=== PATIENT | female | born 2000 | race Caucasian/White ===

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

== ENCOUNTER 2023-05-13 23:17 | Inpatient (IN) ==
[2023-05-13] MEDS ORDERED: AZITHROMYCIN 500 MG in DEXTROSE 5% 250 ML IV STA (23:43)
[2023-05-13] MEDS ORDERED: CITRIC ACID/SODIUM CITRATE 15 ML UDC PO ONE (23:45)
[2023-05-13] MEDS ORDERED: LACTATED RINGER'S 1,000 ML IV SCH (23:45)
[2023-05-13] MEDS ORDERED: SODIUM CHLORIDE 0.9% 250 ML IV PRN ×2 (23:49→23:57)
--- NOTE | 2023-05-13 23:54 | History & Physical Report ---
Date of Service May 13, 2023 Assessment & Plan (1) 36 weeks gestation of : Plan: Patient is a 23-year-old G3, P1 with a di/di twin intrauterine . Patient confirmed to be grossly ruptured on exam. Patient has a history of section x1. Reviewed option for trial of versus repeat as noted above. Risks of both options reviewed and patient would like to proceed with a repeat . She has opted to forego tubal ligation with plan for Nexplanon. consents reviewed and signed. Patient has received betamethasone earlier in this . Elevated blood pressures noted at present. We will continue to monitor. Preeclampsia labs ordered (2) Thrombocytopenia affecting : (3) Encounter for supervision of normal in multigravida, antepartum: (4) Gestational diabetes: (5) Previous delivery affecting , antepartum: (6) Dichorionic diamniotic twin : (7) Need for rhogam due to Rh negative mother: (8) premature rupture of membranes (PPROM) delivered, current hospitalization: History of Present Illness Primary Care Provider: RONEL Ackerman a 23-year-old G3, P1 currently at 36 weeks 3-day gestational age presents with spontaneous rupture of membranes. Current pressure is a di/di twin intrauterine with fetus is in cephalic cephalic presentation. also complicated by prior section, gestational diabetes and thrombocytopenia. Last platelet count was 95. Patient was considering a trial of labor after section. We discussed risks of trial of labor versus repeat section. We discussed uterine rupture and resulting maternal and harm and . After review of options and risks/benefits patient would like to proceed with a repeat section. She had previously discussed a tubal ligation which we reviewed again today. We discussed additional options for control as an alternative to a tubal ligation. After extensive discussion of options patient would like to proceed with placement of a Nexplanon postdelivery. DI/DI Twin *Baby ASA daily start 12-28wks until delivery *Anatomy scan @20wks *Serial growth US/S starting @24wks *Wkly NST's @32wks, twice wkly @36wks(nml growth) *Twice wkly NST's @32wks, ICSI or abnml growth *MD visits Q2wks @24wks & Qwk @32wks *DI/DI Deliver @38wks LGA twins normal range EFWs at 32wk Prior Section affecting would desire a if can and doctor thinks appropriate firs c/s for nrfht C/S WITH TUBAL ON 05/24/23 WITH HARDYK GDM in prior *Begin monthly Growth US's @24wks Need for Rhogam due to RH Negative Mother *Rhogam given 10/11/22 in ED- [facility] *Rhogam given 03/21/23- PW Hx Hepatitis C Antibody -neg antibody w/ nob labs Thrombocytopenia -CBC at 28 wks *platelets 104 repeat in 4 wks. +FFN 03/27/23 Steroids given at L&D 03/27/23 [address] [place] [address] Obstetrics Visit Signed Patient:RADHA NOEL Service Date:05/13/23 MR#:[id number] Ref Phy:Kim Brewer DO Acct ID:[id number] Ca Phy:Estephania Plasencia CRNP Date:2000 Location:[facility] cc: Kim Brewer DO~ *NOTICE TO RECEIVING LIBERTARIAN/AGENCY This information is strictly Confidential and protected under [place] law. [place] law prohibits you from making any further disclosure of this information unless further disclosure is expressly permitted by the written consent of the person to whom it pertains or is authorized by law. A general authorization for the release of medical or other information is not sufficient for this purpose. Physician Practice accepts no responsibility if the information is made available to any other person, INCLUDING THE PATIENT. OB Problems & Plan Follow Up Follow Up: 1 Week Medical [employer] Supervisor [employer] Supervisor Determination Visit Includes a Sensitive Exam of the Pt/Pt Requested: Yes Pt Informed of [facility]'s Recommendation for a Medical [employer]imney [employer] Supervisor: Yes Presence of a Medical Chimney [employer] Supervisor: Accepts Visit CARLA Calculator Estimated Delivery Date Method Current WG Current Estimate 06/07/23 Ultrasound #1 36w 3d # 2 LMP: 06/12/22 : 3 Full term: 1 Premature: 0 Total Number of Induced Abortions: 1 Total Number of Spontaneous Abortions: 0 Ectopics: 0 Multiple births: 0 Number of Living Children: 1 and Delivery Plans DI/DI Twin *Baby ASA daily start 12-28wks until delivery *Anatomy scan @20wks *Serial growth US/S starting @24wks *Wkly NST's @32wks, twice wkly @36wks(nml growth) *Twice wkly NST's @32wks, ICSI or abnml growth *MD visits Q2wks @24wks & Qwk @32wks *DI/DI Deliver @38wks LGA twins normal range EFWs at 32wk Prior Section affecting would desire a if can and doctor thinks appropriate firs c/s for nrfht C/S WITH TUBAL ON 05/24/23 WITH HARDYK GDM in prior *Begin monthly Growth US's @24wks Need for Rhogam due to RH Negative Mother *Rhogam given 10/11/22 in ED- [facility] *Rhogam given 03/21/23- PW Hx Hepatitis C Antibody -neg antibody w/ nob labs Thrombocytopenia -CBC at 28 wks *platelets 104 repeat in 4 wks. +FFN 03/27/23 Steroids given at L&D 03/27/23 OB Labs: Blood Type O Negative 10/22/22 Antibody Screen NEGATIVE 03/21/23 Hemoglobin 11.5 g/dl (12.0-16.0) L 04/25/23 Hematocrit 34.2 % (37.0-47.0) L 04/25/23 Mean Corpuscular Volume 90.7 fL (80.0-100.0) 04/25/23 Platelet Count 88 K/uL (130-400) L 04/25/23 Rubella IgG Antibody Immune (Immune) 10/22/22 Rapid Plasma Reagin Nonreactive (Nonreactive) 10/22/22 Hepatitis B Surface Antigen NEG (NEG) 07/23/17 Hepatitis B Surface Antigen. NON-REACTIVE (NON-REACTIVE) 10/22/22 Hepatitis C Antibody (EIA) NON-REACTIVE (NON-REACTIVE) 10/22/22 HIV (1&2) Ab and P24 Ag, 4th Gener NEG (NEG) 07/23/17 HIV (1&2) Ag and Ab Confirmation NON-REACTIVE (NON-REACTIVE) 10/22/22 OB Optional Labs: Chlamydia trachomatis RNA Not Detected (NotDetected) 10/22/22 Neisseria gonorrhoeae RNA Not Detected (NotDetected) 10/22/22 Alpha Fetoprotein Triple Screen SEE NOTE 09/09/17 Alpha Fetoprotein 26.4 NG/ML 09/09/17 Allergies Allergy/AdvReac Type Severity Reaction Status Date / Time codeine Allergy Intermediate throat Verified 05/13/23 14:03 swelling Home Medications Medication Instructions Recorded Confirmed Type vit no.95-ferrous 1 tab PO DAILY 10/11/22 05/13/23 History fumarate 28 mg-folic acid 800 mcg tablet () Ketone Urine Test (acetone (urine) #50 ea 01/28/23 05/13/23 Rx test) blood sugar diagnostic (OneTouch #150 ea 01/28/23 05/13/23 Rx Verio test strips) blood-glucose meter (OneTouch #1 ea 01/28/23 05/13/23 Rx Verio Reflect Meter) lancets 33 gauge (OneTouch Delica #150 ea 01/28/23 05/13/23 Rx Lancets) Patient History Medical History Anxiety Depression Varicella vaccination Surgical History S/P section Status post hip surgery Family History Other Ovarian cancer Denies family history of Breast cancer Colorectal cancer Social History (Updated 04/22/23 @ 14:52 by Deena Smith RN) Smoking Status: Current every day smoker Tobacco Type: Cigarettes Cigarettes Per Day: 2; Second Hand Exposure: No; Do You Dip or Chew Tobacco: No; Hx Alcohol Use: No Hx Substance Use: No Preferred Language: Thai Communication Ability: Effective Tobacco Prevention Health Educator Required: No Beliefs That Will Affect Care: None marital status: Single marital status details: mya Liu [phone] Current Living Situation: Significant Other Current Living Situation Comment: lives with mya and daughter, dogs. current occupational status: unemployed current occupation: clean houses Feels Safe at Home: Yes Diet: diabetic Gender Identity: Female Assistive Devices: None Physical Exam Genitourinary: normal external appearance Manual OB Exam: + amniotic fluid (Patient grossly ruptured) clear OB Exam Monitor Tracing: + external FHT mo nitor used, + external uterine monitor used and + category I Category 1 tracing x2 Results & Data Vital Signs (Past 12 Hours) Vital Signs Pulse BP 05/13/23 23:36 99 H 181/96 H Coding Level of Care Code None Diagnoses 36 weeks gestation of Z3A.36 Thrombocytopenia affecting O99.119; D69.6 Encounter for supervision of normal in multigravida, antepartum Z3 4.80 Gestational diabetes O24.419 Previous delivery affecting , antepartum O34.219 Dichorionic diamniotic twin O30.049 Need for rhogam due to Rh negative mother Z29.13 premature rupture of membranes (PPROM) delivered, current hospitalization O42.919
[2023-05-14] MEDS ORDERED: fentaNYL citrate PF 100 MCG/2 ML VIAL ONE (00:10)
[2023-05-14] MEDS ORDERED: MoRPHine SULFATE PF 1 MG/ML 10 ML AMP/VIAL ONE (00:11)
--- NOTE | 2023-05-14 00:17 | Anesthesiology Consultation ---
Date of Service May 14, 2023 History Surgery Operation Date: 05/13/23 23:50 Proposed Procedures p Section in LD - Ramon Llamas MD Height/Weight Height: 5 ft 5 in Weight: 105.687 kg Allergies Allergy/AdvReac Type Severity Reaction Status Date / Time codeine Allergy Intermediate throat Verified 05/13/23 14:03 swelling Medications Home Medications Medication Instructions Recorded Confirmed Last Taken vit no.95-ferrous 1 tab PO DAILY 10/11/22 05/13/23 05/12/23 19:00 fumarate 28 mg-folic acid 800 mcg tablet () Ketone Urine Test (acetone (urine) #50 ea 01/28/23 05/13/23 Unknown test) blood sugar diagnostic (OneTouch #150 ea 01/28/23 05/13/23 Unknown Verio test strips) blood-glucose meter (OneTouch #1 ea 01/28/23 05/13/23 Unknown Verio Reflect Meter) lancets 33 gauge (OneTouch Delica #150 ea 01/28/23 05/13/23 Unknown Lancets) Active Medications Generic Name Dose Route Start Last Admin Trade Name Freq PRN Reason Stop Dose Admin Azithromycin 500 mg/ Dextrose 255 mls @ 125 mls/hr 05/13/23 23:43 05/13/23 23:57 IV 05/14/23 01:45 125 mls/hr ONE STA Administration Past Medical History Medical History Anxiety Depression Varicella vaccination Past Family History Family History Other Ovarian cancer Denies family history of Breast cancer Colorectal cancer Past Surgical History Surgical History S/P section Status post hip surgery Social History Smoking Status: Light tobacco smoker tobacco type: cigarettes Smoking cigarettes per day: 2 Do You Dip or Chew Tobacco: No Hx Alcohol Use: No Hx Substance Use: No substance use type: does not use Physical Exam Vital Signs Last Vital Signs Temp 37.1 C 05/13/23 23:35 Pulse 93 H 05/13/23 23:45 Resp 18 05/13/23 23:35 BP 167/79 H 05/13/23 23:45 Constitutional WD/WN, vitals as above cooperative ENMT Thyromental Distance: > or= 3.5 Finger Breadths Mallampati Class: II Neck trachea midline, no thyromegaly Respiratory normal respiratory effort, lungs clear to auscultation Cardiovascular RRR, no murmur, no edema Heart Sounds: normal S1 and normal S2 Palpation: normal PMI Musculoskeletal Head/Neck/Chest: normocephalic and head atraumatic Spine: normal cervical ROM Neurologic normal touch/pain/proprioception, CN's II-XI intact bilaterally (Grossly intact) and moves all extremities Psychiatric A+Ox3, euthymic affect
[2023-05-14 00:19] LABS: Hematocrit (blood only) 32.1 % (37.0-47.0); Hemoglobin 11.1 g/dl (12.0-16.0); Mean Corpuscular Hemoglobin 30.7 pg (25.0-34.0); Mean Corpuscular Hgb Conc 34.6 g/dL (32.0-36.0); Mean Corpuscular Volume 88.9 fL (80.0-100.0); Mean Platelet Volume 12.7 fL (9.4-12.4); Platelet Count 95 K/uL (130-400); RDW Coefficient of Variation 15.5 % (11.5-14.5); RDW Standard Deviation 49.7 fL (36.4-46.3); Red Blood Count 3.61 M/uL (4.20-5.40); White Blood Count 9.09 K/ul (4.8-10.8)
[2023-05-14] MEDS ORDERED: OXYTOCIN 10 UNITS/ML VIAL ONE (00:29)
[2023-05-14 00:36] LABS: Albumin Globulin Ratio 1.1 (0.9-2); Albumin Level 2.8 gm/dl (3.4-5.0); BUN Creatinine Ratio 19.5 (10-20); Bilirubin,Total 0.4 mg/dl (0.2-1.0); Calcium 8.3 mg/dl (8.6-10.3); Creatinine Clr Calc Pharmacy 122.5 ml/min; Est GFR (African American) 109.6 ml/min; Est GFR (Non-African American) 94.6 ml/min; Globulin 2.5 gm/dl (2.5-4.0); Potassium 4.2 mmol/L (3.5-5.1); Total Protein 5.3 gm/dl (6.0-8.3)
[2023-05-14] MEDS ORDERED: ePHEDrine sulfate 50 MG/ML AMP IV PRN (00:54)
[2023-05-14] MEDS ORDERED: NALOXONE HCL 1 MG in SODIUM CHLORIDE 0.9% 1000ML 1,000 ML IV PRN ×2 (00:54→06:38)
[2023-05-14] MEDS ORDERED: MoRPHine SULFATE PF 1 MG/ML 10 ML AMP/VIAL INT SPINAL ONE ×2 (00:54→06:38)
[2023-05-14] MEDS ORDERED: diphenhydrAMINE 50 MG/ML VIAL IV PRN ×3 (00:54→18:54)
[2023-05-14] MEDS ORDERED: NALOXONE HCL 0.08 MG in SYRINGE 1.8 ML IV PRN ×2 (00:54→06:38)
[2023-05-14] MEDS ORDERED: LACTATED RINGER'S 500 ML IV PRN ×2 (00:54→06:38)
[2023-05-14] MEDS ORDERED: NALOXONE HCL 0.4 MG/1 ML VIAL/CARP IV PRN ×2 (00:54→06:38)
[2023-05-14] MEDS ORDERED: HYDROmorphone INJ 0.5 MG/0.5 ML SYR IV PRN (00:54)
[2023-05-14] MEDS ORDERED: DC INTRASPINAL MORPHINE SCH ×2 (01:00→06:45)
[2023-05-14] MEDS ORDERED: SODIUM CHLORIDE 0.9% 1000ML 1,000 ML IV SCH ×2 (01:00→06:45)
[2023-05-14] MEDS ORDERED: NO NARCOTICS OR SEDATIVES SCH ×2 (01:00→06:45)
[2023-05-14] MEDS ORDERED: METHYLENE BLUE 0.5% 10 ML VIAL ONE (01:09)
[2023-05-14] MEDS ORDERED: ONDANSETRON INJ 2 MG/ML 2 ML VIAL ONE (01:26)
[2023-05-14] MEDS ORDERED: HYDROCORTISONE ACETATE 25 MG SUPP PR PRN (01:49)
[2023-05-14] MEDS ORDERED: DIPHTHERIA/TETANUS/PERTUSSIS Vaccine (Tdap, Age 7+yrs) 0.5mL SYR/VL IM ONE (01:49)
[2023-05-14] MEDS ORDERED: BENZOCAINE 20% SPRY 85 APPLN/85 GM CAN EXT PRN (01:49)
[2023-05-14] MEDS ORDERED: MAGNESIUM HYDROXIDE SUSP 30 ML UDC PO PRN (01:49)
[2023-05-14] MEDS ORDERED: SENNA 8.6 MG TAB PO PRN (01:49)
--- NOTE | 2023-05-14 01:58 | Post Operative Brief Note ---
[facility] Immediate Post Op with CF Date of Surgery May 14, 2023 Pre & Post Diagnosis Operation Date: 05/13/23 23:50 Pre-Op Diagnosis: 1. Di/Di twin 2. 36 weeks gestation with rupture of membranes 3. Gestational diabetes Post-Op Diagnosis: 1. Same 2. Delivery of live female child 0101 3. Delivery of live male child 0101 I identified the patient and participated in the time-out.: Yes Procedure Operation Date: 05/13/23 23:50 Actual Procedures p twin Section in LD - Ramon Llamas MD Surgeon Ramon Llamas MD Certified Personal Chef Dr. Brewer Estimated Blood Loss 700 Findings Consistent with Post-Op Diagnosis Specimens Specimen Description: 1. Placenta "A"-hold 2. Placenta "B"-hold 3. Cord blood "A" 4. Cord blood "B" Drains Sellers Catheter OB Procedure charges OB Charges 70755
[2023-05-14] MEDS ORDERED: NALBUPHINE HCL 5 MG in SYRINGE 0 ML IV STA (02:00)
--- NOTE | 2023-05-14 02:00 | Operative Report ---
[facility] Post Operative Report Pre & Post Diagnosis Operation Date: 05/13/23 23:50 Pre-Op Diagnosis: 1. Di/Di twin 2. 36 weeks gestation with rupture of membranes 3. Gestational diabetes Post-Op Diagnosis: 1. Same 2. Delivery of live female child 0101 3. Delivery of live male child 0101 I identified the patient and participated in the time-out.: Yes Procedure Operation Date: 05/13/23 23:50 Actual Procedures p Section in LD - Ramon Llamas MD Surgeon Ramon Llamas MD Biopharmaceutical Rep Dr. Brewer Estimated Blood Loss 700 Findings Consistent with Post-Op Diagnosis Specimens None Description of Procedure The patient was taken to the operating room after consents were ensured. Upon presentation, she was properly identified. Spinal anesthesia was obtained without difficulty. The patient was then prepped and draped in normal sterile fashion. Preprocedural timeout was performed. A Pfannenstiel incision was then made with a knife at the prior location. This was carried down to underlying fascia with the Bovie. The fascia was nicked at the midline with a knife and extended laterally with pickups and Abad scissors. The superior aspect of the fascia was grasped with Kochers x2, elevated off the underlying rectus muscles with blunt dissection and Abad scissors. Inferior aspect of the fascia was grasped with Kochers x2, elevated off the underlying rectus muscles using blunt dissection. The midline was then entered bluntly, placed on stretch to provide adequate room for delivery. There was noted to be adhesions of the anterior abdominal wall to the uterus which were reduced. A bladder flap was created and the bladder blade was inserted. A low transverse uterine incision was then made with a knife. The uterine cavity and amniotic cavity entered bluntly, placed on stretch to provide adequate room for delivery. Head of baby A delivered through the hysterotomy without difficulty, body and shoulders quickly followed. Cord was then double clamped and cut. taken to the waiting nursery staff. Baby B was noted to be in cephalic position and the amniotic sac ruptured with Allis clamp. Thin meconium noted. Head of the delivered through the hysterotomy without difficulty. Body and shoulders quickly followed and was noted to be vigorous soon after delivery. Cord was double clamped and cut and taken of the awaiting nursery staff for evaluation. Cord blood was obtained x2. Attention was then turned to delivery of the placenta, which was delivered intact, 3- vessel cord, with gentle cord traction and uterine massage. The uterus was then exteriorized, wrapped in a wet lap and several passes were made, removing any remaining membranes with a dry lap. The hysterotomy was then reapproximated with 0 Vicryl continuous running locked stitch. A second imbricating layer was performed. The hysterotomy was then reinspected and noted to have mild bleeding, which was then cauterized and pressure was applied and hemostasis was noted. The uterus was then returned to the maternal abdomen. The hemostasis was then noted. The muscles, subcutaneous and fascial layers were inspected to be hemostatic. Stormy was applied to the hysterotomy and raw edges of the bladder flap. The fascia was reapproximated with 0 Vicryl in continuous running stitch.. The subcutaneous layers were reapproximated with 2-0 plain and continuous running stitch. The skin was reapproximated with 3-0 Vicryl with a subcuticular stitch. Needle, sponge, and instrument counts were correct at the completion of the case. Both mother and stable in the immediate post-delivery period I attest to the content of the Intraoperative Record and any orders documented therein. Any exceptions are noted below. OB Procedure charges OB Charges [id number]
--- NOTE | 2023-05-14 02:11 | Anesthesiology Progress Note ---
Date of Service May 14, 2023 Anesthesia Post Procedure Vital Signs Vital Signs: Temp Pulse Resp BP Pulse Ox 05/14/23 02:07 78 99 05/14/23 02:02 80 99 05/14/23 02:01 86 137/85 05/13/23 23:45 93 H 167/79 H 05/13/23 23:36 99 H 181/96 H 05/13/23 23:35 37.1 C 18 Notes Mental Status: alert / awake / arousable Patient Amnestic to Procedure: Yes Nausea / Vomiting: adequately controlled Pain: adequately controlled Airway Patency, RR, SpO2: stable & adequate BP & HR: stable & adequate Hydration State: stable & adequate Neuraxial Anesthesia: was administered and sensory block is resolving Anesthetic Complications: no major complications apparent
[2023-05-14] MEDS ORDERED: NALBUPHINE HCL INJ 10 MG/ML AMP IV ONE (02:15)
[2023-05-14] MEDS: OXYTOCIN 20 UNITS in LACTATED RINGER'S 1,000 ML IV SCH ×2 (02:20→10:35)
[2023-05-14] MEDS: NALBUPHINE HCL INJ 10 MG/ML AMP IV PRN ×2 (02:23→17:53)
[2023-05-14] MEDS ORDERED: NALBUPHINE HCL INJ 10 MG/ML AMP IV PRN (06:38)
--- NOTE | 2023-05-14 07:10 | Obstetrical Progress Note ---
Date of Service May 14, 2023 Assessment & Plan (1) S/P section: (2) premature rupture of membranes (PPROM) delivered, current hospitalization: (3) 36 weeks gestation of : (4) Dichorionic diamniotic twin : (5) Tobacco smoking affecting : Admission and Anticipated Discharge Date Admission Date: May 13, 2023 Subjective 23 yo s/p with di-di twins. PPROM at 36w3d. Ambulation: ambulating normally Voiding: day in place, no bowel movement Passing Gas:: Pt unsure Diet Tolerance:: regular diet Lochia:: Small Feeding Type:: breast feeding, baby girl latching, baby boy not so far Current Pain Level(1-10): 5/10 Resting in moderate discomfort, NAD No BRIDGES, CP, SOB, N/V/D, leg swelling/edema improved Review of Systems Review of Systems: reviewed, see hpi Physical Exam Physical Exam: General: patient resting comfortably, NAD, non-toxic in appearance, AA&O x 4, answers questions appropriately Skin: warm, dry, intact HEENT: NC/AT, anicteric sclera, conjunctiva without injection, moist mucus membranes Heart: +S1/S2, regular, no m/r/g Lungs: equal air entry bilaterally, no rales/rhonchi/wheezes Abd: +BS, soft, NT/ND, uterine fundus firm at umbilicus, incision C/D/I : day in place draining clear/dark urine Ext: warm, no clubbing/cyanosis or edema, Terrie's neg Neuro: nonfocal, patient AA&O x 4, speech intact, no facial droop, moving all extremities on command. Results & Data Vital Signs (Past 12 Hours) Vital Signs Temp Pulse Resp BP Pulse Ox 05/14/23 05:56 18 05/14/23 05:00 18 05/14/23 04:00 18 05/14/23 03:30 18 05/14/23 03:00 18 05/14/23 00:50 18 05/14/23 02:40 18 05/14/23 02:30 18 05/14/23 02:20 18 05/14/23 02:10 18 05/14/23 02:00 36.6 C 18 05/14/23 06:04 69 05/14/23 06:04 137/71 05/14/23 06:01 95 05/14/23 06:01 70 05/14/23 05:56 95 05/14/23 05:56 74 05/14/23 05:51 96 05/14/23 05:51 73 05/14/23 05:48 93 05/14/23 05:48 74 05/14/23 05:46 95 05/14/23 05:46 71 05/14/23 05:41 95 05/14/23 05:41 78 05/14/23 05:36 95 05/14/23 05:36 79 05/14/23 05:34 75 146/73 H 05/14/23 05:31 83 95 05/14/23 05:32 78 94 05/14/23 05:26 82 93 05/14/23 05:27 80 94 05/14/23 05:22 85 93 05/14/23 05:21 90 95 05/14/23 05:16 89 95 05/14/23 05:11 86 97 05/14/23 05:12 86 93 05/14/23 05:06 80 95 05/14/23 05:03 79 93 05/14/23 05:04 76 136/73 05/14/23 05:01 85 96 05/14/23 04:58 84 94 05/14/23 04:56 81 95 05/14/23 04:51 86 97 05/14/23 04:46 81 96 05/14/23 04:41 82 96 05/14/23 04:36 80 95 05/14/23 04:34 72 132/67 94 05/14/23 04:31 77 96 05/14/23 04:26 78 97 05/14/23 04:17 88 94 05/14/23 04:12 91 H 98 05/14/23 04:07 82 98 08 04:04 90 132/72 05/14/23 04:02 82 96 05/14/23 03:57 76 95 05/14/23 03:52 75 97 05/14/23 03:47 73 96 05/14/23 03:42 74 97 05/14/23 03:37 70 97 05/14/23 03:34 85 122/99 05/14/23 03:32 92 H 98 05/14/23 03:27 87 97 05/14/23 03:22 84 97 05/14/23 03:17 81 99 05/14/23 03:12 83 99 05/14/23 03:07 83 99 05/14/23 03:02 99 05/14/23 03:02 73 05/14/23 03:02 78 130/65 05/14/23 02:57 79 100 05/14/23 02:58 88 93 05/14/23 02:52 93 H 96 05/14/23 02:51 74 159/72 H 05/14/23 02:47 87 97 05/14/23 02:42 100 05/14/23 02:42 82 05/14/23 02:42 113 H 144/65 H 05/14/23 02:37 82 97 05/14/23 02:32 77 100 05/14/23 02:31 65 126/82 05/14/23 02:27 82 99 05/14/23 02:22 79 100 05/14/23 02:23 74 142/65 H 05/14/23 02:17 84 100 05/14/23 02:14 95 H 144/72 H 05/14/23 02:12 85 100 05/14/23 02:13 123 H 176/124 H 05/14/23 02:07 78 99 05/14/23 02:02 80 99 05/14/23 02:01 86 137/85 05/13/23 23:45 93 H 167/79 H 05/13/23 23:36 99 H 181/96 H 05/13/23 23:35 37.1 C 18 Laboratory Results 05/14/23 05/13/23 05/13/23 Range/Units 00:02 23:52 23:52 WBC 9.09 (4.8-10.8) K/ul RBC 3.61 L (4.20-5.40) M/uL Hgb 11.1 L (12.0-16.0) g/dl Hct 32.1 L (37.0-47.0) % MCV 88.9 (80.0-100.0) fL MCH 30.7 (25.0-34.0) pg MCHC 34.6 (32.0-36.0) g/dL RDW Std Deviation 49.7 H (36.4-46.3) fL RDW Coeff of Shilo 15.5 H (11.5-14.5) % Plt Count 95 L (130-400) K/uL MPV 12.7 H (9.4-12.4) fL Sodium 135 L (136-145) mmol/L Potassium 4.2 (3.5-5.1) mmol/L Chloride 109 H (98-107) mmol/L Carbon Dioxide 18 L (21-32) mmol/L Anion Gap 8 (3-11) BUN 17 (6-23) mg/dl Creatinine 0.87 (0.6-1.2) mg/dl Est Cr Clr Drug Dosing 122.5 ml/min Est GFR ( Amer) 109.6 ml/min Est GFR (Non-Af Amer) 94.6 ml/min BUN/Creatinine Ratio 19.5 (10-20) Glucose 84 (70-99(Fasting)) mg/dl Calcium 8.3 L (8.6-10.3) mg/dl Total Bilirubin 0.4 (0.2-1.0) mg/dl AST 13 (13-39) U/L ALT 5 L (7-52) U/L Alkaline Phosphatase 193 H (34-104) U/L Total Protein 5.3 L (6.0-8.3) gm/dl Albumin 2.8 L (3.4-5.0) gm/dl Globulin 2.5 (2.5-4.0) gm/dl Albumin/Globulin Ratio 1.1 (0.9-2) Blood Type O Negative Antibody Screen NEGATIVE Crossmatch See Detail Resident Activity Tracking Resident Involvement: Resident Care Provided Care Provided: Adult Hospital Medicine
[2023-05-14] MEDS: FERROUS SULFATE 325 MG TAB PO SCH (08:13)
[2023-05-14] MEDS: SIMETHICONE 80 MG CHEW PO SCH ×4 (08:13→20:57)
[2023-05-14] MEDS: DOCUSATE SODIUM 100 MG CAP PO SCH ×2 (08:13→20:57)
[2023-05-14] MEDS: KETOROLAC TROMETHAMINE 15 MG/ML VIAL IV PRN ×2 (08:14→13:42)
[2023-05-14] MEDS: PRENATAL VITAMIN 1 TAB PO SCH (09:21)
[2023-05-14] MEDS: cephALEXin 500 MG CAP PO SCH ×2 (09:31→20:57)
[2023-05-14 13:13] LABS: Hemoglobin 8.8 g/dl (12.0-16.0); Mean Corpuscular Hemoglobin 30.6 pg (25.0-34.0); Mean Corpuscular Hgb Conc 33.8 g/dL (32.0-36.0); Mean Corpuscular Volume 90.3 fL (80.0-100.0); Mean Platelet Volume 11.7 fL (9.4-12.4); Platelet Count 71 K/uL (130-400); RDW Coefficient of Variation 15.5 % (11.5-14.5); RDW Standard Deviation 50.8 fL (36.4-46.3); Red Blood Count 2.88 M/uL (4.20-5.40); White Blood Count 6.03 K/ul (4.8-10.8)
[2023-05-14 13:41] LABS: Albumin Globulin Ratio 1.1 (0.9-2); Albumin Level 2.2 gm/dl (3.4-5.0); Bilirubin,Total 0.3 mg/dl (0.2-1.0); Calcium 7.8 mg/dl (8.6-10.3); Creatinine Clr Calc Pharmacy 134.9 ml/min; Est GFR (African American) 123.2 ml/min; Est GFR (Non-African American) 106.3 ml/min; Potassium 4.3 mmol/L (3.5-5.1); Total Protein 4.2 gm/dl (6.0-8.3)
[2023-05-14] MEDS ORDERED: LACTATED RINGER'S 1,000 ML IV SCH (18:15)
[2023-05-14] MEDS ORDERED: diphenhydrAMINE Capsule 25 MG CAP PO PRN (18:54)
[2023-05-14] MEDS ORDERED: ONDANSETRON INJ 2 MG/ML 2 ML VIAL IV PRN (18:54)
[2023-05-14] MEDS ORDERED: PROMETHAZINE HCL 25 MG in SODIUM CHLORIDE 0.9% 50 ML IV PRN (18:54)
[2023-05-14] MEDS ORDERED: KETOROLAC 30 MG/ML VIAL IV PRN (18:54)
[2023-05-14] MEDS: IBUPROFEN 600 MG TAB PO PRN ×2 (19:12→23:40)
[2023-05-14] MEDS: oxyCODONE/ACETAMINOPHEN 5mg/325mg TAB PO PRN ×2 (19:13→23:39)
[2023-05-14] MEDS ORDERED: hydrOXYzine HCl 25 MG TAB PO PRN (22:01)
--- NOTE | 2023-05-15 05:29 | Obstetrical Progress Note ---
Date of Service May 15, 2023 Assessment & Plan (1) S/P section: Plan: encourage ambulation (2) Cough: Plan: robutussin covid/rsv/flu swab cxr Present on Admission?: Yes (3) premature rupture of membranes (PPROM) delivered, current hospitalization: (4) 36 weeks gestation of : (5) Dichorionic diamniotic twin : (6) Tobacco smoking affecting : Plan 23 yo post day 1 s/p , delivery of di-di twins Admission and Anticipated Discharge Date Admission Date: May 13, 2023 Supervising Physician Co-Signing Physician Notes Resident Physician Supervision Note: I was present with Dr. Singh during the history and exam. I discussed the case with the resident and agree with the findings and plan as documented in the note. Any exceptions or clarifications are listed here: POD#1. New-onset cough, clear lung sounds. Will do CXR, covid/flu/rsv swab. Robitussin. Repeat labs this morning show stable platelets. Encouraged ambulation, hydration. Restarted her zoloft, hydroxyzine - she is aware to follow up with PCP selina for management. Documented By: Kim Brewer, Subjective 23 yo post day 1 s/p , delivery of di-di twins Ambulation: ambulating normally Voiding: no voiding problems Passing Gas:: Yes Diet Tolerance:: regular diet, not eating much Lochia:: Small Feeding Type:: bottle feeding Current Pain Level(1-10): 3 down from 5 yesterday Continues to have incisional pain worse with movement and cough. Breast feeding. Persistent cough present since prior to delivery. B/l leg swelling with some pain No BRIDGES, CP, SOB, N/V/D Review of Systems Review of Systems: reviewed, per hpi Physical Exam Physical Exam: General: patient resting comfortably, NAD, non-toxic in appearance, AA&O x 4, answers questions appropriately Skin: warm, dry, intact HEENT: NC/AT, anicteric sclera, conjunctiva without injection, moist mucus membranes Heart: +S1/S2, regular, no m/r/g Lungs: equal air entry bilaterally, cough, diffuse crackles worse in upper lung burdick Abd: +BS, soft, NT/ND, uterine fundus firm at umbilicus, cesarian incision C/D/I Ext: warm, no clubbing/cyanosis or edema, Terrie's neg Neuro: nonfocal, patient AA&O x 4, speech intact, no facial droop, moving all extremities on command. Results & Data Vital Signs (Past 12 Hours) Vital Signs Temp Pulse Resp BP BP Pulse Ox O2 Del Method 05/15/23 04:24 47 L 145/84 H 142/82 H 05/14/23 23:40 Room Air 05/14/23 23:40 36.5 C 80 18 133/79 166/87 H Room Air 05/14/23 18:50 20 94 05/14/23 17:50 20 94 05/14/23 21:45 146/88 H 147/90 H 05/14/23 19:20 36.9 C 70 20 138/81 162/93 H 94 Room Air 05/14/23 17:50 137/86 157/92 H Laboratory Results 05/14/23 05/14/23 Range/Units 12:41 12:41 WBC 6.03 (4.8-10.8) K/ul RBC 2.88 L (4.20-5.40) M/uL Hgb 8.8 L (12.0-16.0) g/dl Hct 26.0 L (37.0-47.0) % MCV 90.3 (80.0-100.0) fL MCH 30.6 (25.0-34.0) pg MCHC 33.8 (32.0-36.0) g/dL RDW Std Deviation 50.8 H (36.4-46.3) fL RDW Coeff of Shilo 15.5 H (11.5-14.5) % Plt Count 71 L (130-400) K/uL MPV 11.7 (9.4-12.4) fL Sodium 136 (136-145) mmol/L Potassium 4.3 (3.5-5.1) mmol/L Chloride 110 H (98-107) mmol/L Carbon Dioxide 22 (21-32) mmol/L Anion Gap 4 (3-11) BUN 15 (6-23) mg/dl Creatinine 0.79 (0.6-1.2) mg/dl Est Cr Clr Drug Dosing 134.9 ml/min Est GFR ( Amer) 123.2 ml/min Est GFR (Non-Af Amer) 106.3 ml/min BUN/Creatinine Ratio 19.0 (10-20) Glucose 72 (70-99(Fasting)) mg/dl Calcium 7.8 L (8.6-10.3) mg/dl Total Bilirubin 0.3 (0.2-1.0) mg/dl AST 16 (13-39) U/L ALT 4 L (7-52) U/L Alkaline Phosphatase 135 H (34-104) U/L Total Protein 4.2 L D (6.0-8.3) gm/dl Albumin 2.2 L (3.4-5.0) gm/dl Globulin 2.0 L (2.5-4.0) gm/dl Albumin/Globulin Ratio 1.1 (0.9-2) Resident Activity Tracking Resident Involvement: Resident Care Provided Care Provided: Adult [facility]
[2023-05-15] MEDS: IBUPROFEN 600 MG TAB PO PRN ×4 (06:27→20:06)
[2023-05-15] MEDS: oxyCODONE/ACETAMINOPHEN 5mg/325mg TAB PO PRN ×4 (06:27→20:06)
[2023-05-15 06:29] LABS: Basophils # (auto) 0.01 K/uL (0-0.2); Basophils % (auto) 0.2 %; Eosinophils # (auto) 0.02 K/uL (0-0.50); Eosinophils % (auto) 0.3 %; Hematocrit (blood only) 25.8 % (37.0-47.0); Hemoglobin 8.8 g/dl (12.0-16.0); Immature Granulocytes # (auto) 0.07 K/uL (0.01-0.20); Immature Granulocytes % (auto) 1.1 %; Lymphocytes # (auto) 1.17 K/uL (1.2-3.4); Lymphocytes % (auto) 18.3 %; Mean Corpuscular Hemoglobin 30.9 pg (25.0-34.0); Mean Corpuscular Hgb Conc 34.1 g/dL (32.0-36.0); Mean Corpuscular Volume 90.5 fL (80.0-100.0); Monocytes # (auto) 0.29 K/uL (0.11-0.59); Monocytes % (auto) 4.5 %; Neutrophils # (auto) 4.83 K/uL (1.40-6.50); Neutrophils % (auto) 75.6 %; Platelet Count 70 K/uL (130-400); RDW Coefficient of Variation 15.7 % (11.5-14.5); RDW Standard Deviation 51.6 fL (36.4-46.3); Red Blood Count 2.85 M/uL (4.20-5.40); White Blood Count 6.39 K/ul (4.8-10.8)
[2023-05-15] MEDS ORDERED: guaiFENesin/DEXTROM SYRUP 200MG/20MG 10ML UDC PO PRN (06:54)
[2023-05-15 07:02] LABS: Albumin Level 2.2 gm/dl (3.4-5.0); BUN Creatinine Ratio 18.2 (10-20); Bilirubin,Total 0.3 mg/dl (0.2-1.0); Calcium 7.7 mg/dl (8.6-10.3); Creatinine Clr Calc Pharmacy 138.4 ml/min; Est GFR (Non-African American) 109.6 ml/min; Globulin 2.1 gm/dl (2.5-4.0); Potassium 4.3 mmol/L (3.5-5.1); Total Protein 4.3 gm/dl (6.0-8.3)
--- NOTE | 2023-05-15 07:11 | XRay Report ---
XR chest 1V portable HISTORY: 23 years-old Female cough acute cough COMPARISON: Chest and rib radiographs 10/31/2010 TECHNIQUE: AP view of the chest FINDINGS: Cardiomediastinal and hilar silhouettes are within normal limits. No pneumothorax, pleural effusion, airspace consolidation or pulmonary edema. Bones appear normal. IMPRESSION: No acute process. ACT 112: Negative or not required by law. The above report was generated using voice recognition software. It may contain grammatical, syntax o r spelling errors. Electronically signed by: Ramon Lloyd M.D. 05/15/2023 7:10 AM
[2023-05-15 09:02] LABS: Influenza A virus by PCR Negative (Neg); Influenza B virus by PCR Negative (Neg); RSV by PCR Negative (Neg); SARS CoV2 RNA(COVID-19) Ceph NEGATIVE (Negative)
[2023-05-15] MEDS: SIMETHICONE 80 MG CHEW PO SCH ×4 (09:02→20:06)
[2023-05-15] MEDS: FERROUS SULFATE 325 MG TAB PO SCH (09:03)
[2023-05-15] MEDS: DOCUSATE SODIUM 100 MG CAP PO SCH ×2 (09:03→20:05)
[2023-05-15] MEDS: PRENATAL VITAMIN 1 TAB PO SCH (09:03)
[2023-05-15] MEDS: SERTRALINE HCL 50 MG TABLET PO SCH (09:04)
[2023-05-15] MEDS: cephALEXin 500 MG CAP PO SCH (09:04)
[2023-05-15 18:18] LABS: Hematocrit (blood only) 26.1 % (37.0-47.0); Hemoglobin 8.9 g/dl (12.0-16.0); Mean Corpuscular Hemoglobin 30.3 pg (25.0-34.0); Mean Corpuscular Hgb Conc 34.1 g/dL (32.0-36.0); Mean Corpuscular Volume 88.8 fL (80.0-100.0); Mean Platelet Volume 11.6 fL (9.4-12.4); Platelet Count 89 K/uL (130-400); RDW Coefficient of Variation 15.7 % (11.5-14.5); RDW Standard Deviation 49.4 fL (36.4-46.3); Red Blood Count 2.94 M/uL (4.20-5.40); White Blood Count 7.96 K/ul (4.8-10.8)
[2023-05-15 18:38] LABS: Albumin Globulin Ratio 1.1 (0.9-2); Albumin Level 2.5 gm/dl (3.4-5.0); BUN Creatinine Ratio 19.8 (10-20); Bilirubin,Total 0.3 mg/dl (0.2-1.0); Calcium 7.9 mg/dl (8.6-10.3); Creatinine Clr Calc Pharmacy 131.5 ml/min; Est GFR (African American) 119.5 ml/min; Est GFR (Non-African American) 103.1 ml/min; Globulin 2.3 gm/dl (2.5-4.0); Potassium 4.1 mmol/L (3.5-5.1); Total Protein 4.8 gm/dl (6.0-8.3)
--- NOTE | 2023-05-15 19:57 | Obstetrical Progress Note ---
Date of Service May 15, 2023 Assessment & Plan (1) S/P section: (2) Thrombocytopenia affecting : (3) Elevated blood pressure reading: Plan Pressures are mildly elevated wtih most in the 140-150s/80s. A rare severe range blood pressure but always goes down on repeat. Labs are wnl and plts are recovering. No s/s of pet. Do not suspect HELLP or severe pet at this time. May have a mild pet picture. Do not think Mag is indicated at this time. However, will treat blood pressure with procardia XL as pulse a bit low. She is agreeable to this. Will notify nursing of any changes in her condition. Subjective Was notified by nurse of elevated blood pressure at 5pm of 155/91. Was not notified of blood pressure of 170/92 with repeat of 160/90s at noon. Patient has been more active today but still has not been out of the room to walk. She is smiling and talking to the nurse when I came in, lying in bed. She notes she feels ok. Notes some blurry vision in the last couple of hours, no scomotata. Notes a very mild nguyen and mild nausea through the day. Notes she feels her swelling might be a little bit worse today. Notes no ruq pain/chest pain or sob. patient continues to note some uri symptoms. Covid test negative. cxr clear. Her labs were drawn and all are wnl. 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 Blood pressures are not severe range, mild range. Pulse in 50s at times but asymptomatic. Physical Exam Constitutional WD/WN, vitals as above Cardiovascular Extremities: + edema (+4, tight, some pitting to above the knee); no calf tenderness Gastrointestinal (Abdomen) soft, nt, fundus appropriately tender post op. Notes a bit of tenderness in the RUQ Neurologic patellar DTR's 2+ bilat, sensation intact Results & Data Vital Signs (Past 12 Hours) Vital Signs Temp Pulse Pulse Resp BP BP BP 05/15/23 17:10 36.8 C 52 L 16 155/91 H 05/15/23 12:55 36.8 C 60 20 162/97 H 170/92 H 05/15/23 08:35 36.8 C 56 L 20 124/82 146/84 H 05/15/23 08:53 36.8 C 56 L 20 124/82 Pulse Ox O2 Del Method 05/15/23 17:10 05/15/23 12:55 05/15/23 08:35 98 Room Air 05/15/23 08:53 98
[2023-05-15] MEDS ORDERED: bisacodyL 5 MG TABEC PO SCH (20:00)
[2023-05-15] MEDS: NIFEdipine EXTENDED REL 30 MG TABCR PO SCH (20:17)
[2023-05-16] MEDS ORDERED: bisacodyL 10 MG SUPP PR PRN (01:50)
[2023-05-16] MEDS: IBUPROFEN 600 MG TAB PO PRN ×5 (01:53→21:08)
[2023-05-16] MEDS: oxyCODONE/ACETAMINOPHEN 5mg/325mg TAB PO PRN ×5 (01:53→21:08)
[2023-05-16 04:07] VITALS: O2SAT 99
--- NOTE | 2023-05-16 06:26 | Obstetrical Progress Note ---
Date of Service May 16, 2023 Assessment & Plan (1) S/P section: Plan: encourage ambulation (2) Cough: Plan: robutussin covid/rsv/flu swab negative cxr negative (3) Elevated blood pressure reading with diagnosis of hypertension: Plan: improved procardia 30 mg plan to stay another day for BP monitoring Plan 23 yo post day 1 s/p , delivery of di-di twins encourage ambulation restarted zoloft, hydroxyzine BPs stable after addition of procardia xl Admission and Anticipated Discharge Date Admission Date: May 13, 2023 Supervising Physician Co-Signing Physician Notes Resident Physician Supervision Note: I interviewed and examined the patient. Discussed with Dr. Singh and agree with findings and plan as documented in the note. Any exceptions or clarifications are listed here: Overall doing better. Her plts continue to rebound and now >100K, labs this am are all wnl. Feeling overall better. Notes nausea resolved and her mild bridges is gone. She feels her swelling is a little better today. +4, but softer and above the knee. No s/s of pet. Her pressures seem to be r esponding to Procardia XL. Will need to monitor though the day today for her pressues. has not really been ambulatory, encouraged. Documented By: Nancy Valentin MD, FACOG Subjective 23 yo post day 3 s/p , delivery of di-di twins Ambulation: ambulating much better today Voiding: voiding and passing gas, no bowel movements Passing Gas:: Yes Diet Tolerance:: regular diet, diet improving Lochia:: Small Feeding Type:: bottle feeding Current Pain Level(1-10): minimal Continues to have incisional pain worse with movement and cough. Bottle feeding Persistent cough present since prior to delivery. B/l leg swelling same to slightly better today No BRIDGES, CP, SOB, N/V/D Review of Systems Review of Systems: reviewed, per hpi Physical Exam Physical Exam: General: patient resting comfortably, NAD, non-toxic in appearance, AA&O x 4, answers questions appropriately Skin: warm, dry, intact HEENT: NC/AT, anicteric sclera, conjunctiva without injection, moist mucus membranes Heart: +S1/S2, regular, no m/r/g Lungs: equal air entry bilaterally, decreased cough Abd: +BS, soft, NT/ND, uterine fundus firm, cesarian incision C/D/I Ext: warm, edema 3-4+, Terrie's neg, some redness in feet today Neuro: nonfocal, patient AA&O x 4, speech intact, no facial droop, moving all extremities on command. Results & Data Vital Signs (Past 12 Hours) Vital Signs Temp Pulse Resp BP BP Pulse Ox O2 Del Method 05/16/23 04:05 36.4 C L 60 16 134/77 99 Room Air 05/16/23 00:11 36.8 C 54 L 18 138/84 98 Room Air 05/15/23 19:40 36.9 C 61 16 146/88 H 97 Room Air Resident Activity Tracking Resident Involvement: Resident Care Provided Care Provided: Adult Hospital Medicine
[2023-05-16 06:47] LABS: Hematocrit (blood only) 27.9 % (37.0-47.0); Hemoglobin 9.5 g/dl (12.0-16.0); Mean Corpuscular Hemoglobin 30.4 pg (25.0-34.0); Mean Corpuscular Hgb Conc 34.1 g/dL (32.0-36.0); Mean Corpuscular Volume 89.4 fL (80.0-100.0); Mean Platelet Volume 11.4 fL (9.4-12.4); Platelet Count 105 K/uL (130-400); RDW Coefficient of Variation 15.8 % (11.5-14.5); RDW Standard Deviation 50.6 fL (36.4-46.3); Red Blood Count 3.12 M/uL (4.20-5.40); White Blood Count 6.54 K/ul (4.8-10.8)
[2023-05-16 07:07] LABS: Albumin Level 2.7 gm/dl (3.4-5.0); BUN Creatinine Ratio 19.7 (10-20); Bilirubin,Total 0.3 mg/dl (0.2-1.0); Calcium 8.2 mg/dl (8.6-10.3); Creatinine Clr Calc Pharmacy 174.6 ml/min; Est GFR (African American) 149.1 ml/min; Est GFR (Non-African American) 128.7 ml/min; Globulin 2.6 gm/dl (2.5-4.0); Total Protein 5.3 gm/dl (6.0-8.3)
[2023-05-16] MEDS: DOCUSATE SODIUM 100 MG CAP PO SCH ×2 (08:22→21:08)
[2023-05-16] MEDS: NIFEdipine EXTENDED REL 30 MG TABCR PO SCH (08:22)
[2023-05-16] MEDS: SERTRALINE HCL 50 MG TABLET PO SCH (08:22)
[2023-05-16] MEDS: FERROUS SULFATE 325 MG TAB PO SCH (08:22)
[2023-05-16] MEDS: SIMETHICONE 80 MG CHEW PO SCH ×4 (08:22→21:08)
[2023-05-16] MEDS: PRENATAL VITAMIN 1 TAB PO SCH (08:22)
[2023-05-16] MEDS: NICOTINE 14 MG/24 HR PATCH TD SCH (17:58)
[2023-05-16 21:48] VITALS: TEMP 97.7
[2023-05-16 23:46] VITALS: BP 159/85; PULSE 54
[2023-05-17] MEDS: IBUPROFEN 600 MG TAB PO PRN ×3 (01:59→13:40)
[2023-05-17] MEDS: oxyCODONE/ACETAMINOPHEN 5mg/325mg TAB PO PRN ×3 (02:00→13:41)
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
[2023-05-17] MEDS: FERROUS SULFATE 325 MG TAB PO SCH (08:19)
[2023-05-17] MEDS: DOCUSATE SODIUM 100 MG CAP PO SCH (08:19)
[2023-05-17] MEDS: NIFEdipine EXTENDED REL 30 MG TABCR PO SCH (08:19)
[2023-05-17] MEDS: PRENATAL VITAMIN 1 TAB PO SCH (08:19)
[2023-05-17] MEDS: SIMETHICONE 80 MG CHEW PO SCH ×2 (08:19→13:40)
[2023-05-17] MEDS: SERTRALINE HCL 50 MG TABLET PO SCH (08:19)
[2023-05-17] MEDS: NICOTINE 14 MG/24 HR PATCH TD SCH (09:00)
[2023-05-17] MEDS ORDERED: NIFEdipine EXTENDED REL 30 MG TABCR PO STA (09:39)
--- NOTE | 2023-05-17 11:47 | Psychiatric Consultation ---
Date of Consultation May 17, 2023 Impression / Recommendations Impression Diagnostically consistent with post- mood shifts versus adjustment disorder with mixed depression and anxiety related to transitioning to new role as mother to twins, balancing new responsibilities, hormonal changes, and now adjusting to breakup with boyfriend of four years. However, she feels she is coping well overall, given multiple stressors and demonstrates significant resilience, good insight, and is very responsive to her new twins (picking them up immediately when they start to cry, smiling broadly when talking to them/comforting them, and transitioning between the two as needed). Agree with restarting sertraline to help reduce likelihood for post- depression, which she is at high risk given history of depression and multiple psychosocial stressors, and she is receptive to additional outpatient resources to try to help address some of her financial stressors and limited social support. Acute risk of self harm is low given denial of major depression symptoms, denial of SI, future-oriented, strong reasons for living, hopefulness and willingness to engage with additional resources. Chronic risk of harm to self is moderate given some non-modifiable risk factors including past attempt, childhood trauma, limited support, financial stress. Provided education and recommendations of treatment options and behavioral strategies including continuing sertraline, protecting sleep, option to start outpatient therapy to help reduce risk for post- depression. Also discussed resources and ways to add additional protective factors and positive supports to their life to reduce elements of chronic risk. Overall, I spent a total of 85 minutes with this case including review of chart records, review of labwork, direct evaluation of the patient at bedside, counseling the patient, discussion of the patient with the nurse, discussion with the psychiatric liason and forensic social worker during clinical rounds and documentation in the electronic health record. (1) Adjustment disorder with mixed anxiety and depressed mood: (2) At risk for depressed mood during period: Plan -safe for discharge from psychiatric standpoint once medically stable -Agree with sertraline 50mg qd for depression/anxiety, she feels comfortable following up with her PCP for this (could be further titrated to 100mg qd after 3-4 weeks if needed) -Agree with Vistaril as needed for anxiety/insomnia, dose at discharge could be increased to 25mg BID po prn for anxiety/insomnia -Provided with information on local resources including [facility] and agreeable to referrals for outpatient mental health case management and Resource Clinic -Encourage close OB and PCP follow-up given multiple stressors and potential for mood worsening -She understands options for local Crisis resources, to call 911 or return to ED if mood worsens or she feels unsafe in the future Psych History Identifying Data 23 yo woman with a history of anxiety and depression now s/p delivery of twins. Psychiatry consulted by OB provider for "pt request dut to emotional status/high risk PPD" Chief Complaint "I'm ok mentally but my boyfriend has not been treating me well". History of Present Illness Ramón delivered twins, a baby boy and baby girl, 05/14/2023 and subsequently requested to be restarted on her prior to psychiatric medication of sertraline for depression and anxiety. The evening that her water broke she and her boyfriend, the father of the twins, were arguing and he was going to pack his items and move out of their home as he was starting to question his commitment to being with her and being able to take care of the new babies. After delivery of the twins she felt he was not being supportive and then yesterday he started to make statements concerning for acute psychosis (such as questioning if she was real) and erratic behaviors (gave away the keys to their family vehicle to a stranger he met outside of the emergency department). Following these events and his ongoing lack of support she broke up with him this morning and is not permitting him to come back to the hospital and has told him to move his things out of their home. She is on the rent for their home so is able to return there. She notes understandable sadness about the end of this relationship and stress due to timing with new twins arrival but also feels that it was necessary and somewhat inevitable given his worsening mental health and his seemingly lack of support. She notes that he never harmed her physically but would put her down and could be uncaring noting "he never put his hands on me but I'm tired of being the punching bag". She feels her mood is ok currently and we reflect on her difficulties throughout her life and remarkable resilience. She notes her new twins and 5 yo daughters are absolute reasons for living and moving forward with her life and adamantly denies any SI. She is anxious about managing the twins on her own but also feels that she may be less stressed not having her ex-boyfriend around because he could be erratic and struggled with psychosis. She worries about possibly de veloping post- depression but is glad to be back on sertraline and is not having any side effects so far. She does not feel she requires psychiatric hospitalization at this time. She is receptive to additional resources to help support her in the outpatient setting. Psychiatric history notable for suicide attempt at age 13, no history of psychiatric hospitalizations, childhood trauma with CYS involvement. Allergies Allergy/AdvReac Type Severity Reaction Status Date / Time codeine Allergy Intermediate throat Verified 05/13/23 14:03 swelling Home Medications Medication Instructions Recorded Confirmed Type vit no.95-ferrous 1 tab PO DAILY 10/11/22 05/13/23 History fumarate 28 mg-folic acid 800 mcg tablet () Ketone Urine Test (acetone (urine) #50 ea 01/28/23 05/13/23 Rx test) blood sugar diagnostic (OneTouch #150 ea 01/28/23 05/13/23 Rx Verio test strips) blood-glucose meter (OneTouch #1 ea 01/28/23 05/13/23 Rx Verio Reflect Meter) lancets 33 gauge (OneTouch Delica #150 ea 01/28/23 05/13/23 Rx Lancets) nifedipine 30 mg tablet,extended 30 mg PO QAM #30 tabs 05/16/23 Rx release 24 hr (Procardia XL) oxycodone-acetaminophen 5 mg-325 1 - 2 tab PO Q4H PRN pain #20 tabs 05/16/23 Rx mg tablet (Percocet) nifedipine 30 mg tablet,extended 60 mg PO QAM #60 tabs 05/17/23 Rx release 24 hr (Procardia XL) Patient History Medical History 36 weeks gestation of Anxiety Depression Dichorionic diamniotic twin Encounter for supervision of normal in multigravida, antepartum Gestational diabetes Need for rhogam due to Rh negative mother premature rupture of membranes (PPROM) delivered, current hospitalization Thrombocytopenia affecting Tobacco smoking affecting Varicella vaccination Surgical History Previous delivery affecting , antepartum S/P section Status post hip surgery Family History Other Ovarian cancer Denies family history of Breast cancer Colorectal cancer Social History Smoking Status: Light tobacco smoker Tobacco Type: Cigarettes Cigarettes Per Day: 2; Second Hand Exposure: No; Do You Dip or Chew Tobacco: No; Hx Alcohol Use: No Hx Substance Use: No Preferred Language: Mongolian Communication Ability: Effective Assistant Teaching Professor Required: No Beliefs That Will Affect Care: None marital status: Single marital status details: mya Liu [phone]) [phone] Current Living Situation: Family and Significant Other Current Living Situation Comment: lives with mya and daughter, dogs. current occupational status: unemployed current occupation: clean houses Feels Safe at Home: Yes Diet: diabetic Gender Identity: Female Assistive Devices: None Physical Exam Psychiatric: Orientation: alert and oriented x 3 Apperance: appropriately dressed and appropriately groomed Eye Contact: good eye contact Motor Behavior: no abnormal motor movements Speech: normal rate/rhythm/volume of speech Affect: euthymic affect (smiles appropriately when discussing her k ids), + anxious affect and + tearful affect (appropriately when discussing breakup) Mood: + anxious mood; no depressed mood Thought Process: goal directed thought process Thought Content: reality based without delusions Suicidal Thoughts: denies suicidal thoughts Homicidal Thoughts: denies homicidal thoughts Hallucinations: no auditory hallucinations and no visual hallucinations Cognition: attention grossly intact and language grossly intact Estimated Intelligence: consistent with education level Insight: good insight Judgment: + fair judgement Vital Signs (Past 24 Hours): Last Vital Signs Temp 36.5 C 05/16/23 23:30 Pulse 54 L 05/16/23 23:30 Resp 18 05/16/23 23:30 BP 159/85 H 05/16/23 23:30 Pulse Ox 99 05/16/23 04:05 O2 Del Method Room Air 05/16/23 16:30 Review of Systems All systems reviewed & are unremarkable except as noted in HPI & below Results & Data (PSY) Medications Administered Docusate Sodium (Docusate Sodium 100 Mg Cap) 100 mg PO DAILY@ SHANE Stop: 06/13/23 07:59 Last Admin: 05/17/23 08:19 Dose: 100 mg Documented By: Admin: 05/16/23 21:08 Dose: 100 mg Documented By: Admin: 05/16/23 08:22 Dose: 100 mg Documented By: Admin: 05/15/23 20:05 Dose: 100 mg Documented By: Admin: 05/15/23 09:03 Dose: 100 mg Documented By: Admin: 05/14/23 20:57 Dose: 100 mg Documented By: Admin: 05/14/23 08:13 Dose: 100 mg Documented By: SABINO Ferrous Sulfate (Ferrous Sulfate 325 Mg Tab) 325 mg PO DAILY@08 SHANE Stop: 06/13/23 07:59 Last Admin: 05/17/23 08:19 Dose: 325 mg Documented By: Admin: 05/16/23 08:22 Dose: 325 mg Documented By: Admin: 05/15/23 09:03 Dose: 325 mg Documented By: Admin: 05/14/23 08:13 Dose: 325 mg Documented By: SABINO Guaifenesin/Dextromethorphan (Guaifenesin/Dextrom Syrup 200mg/20mg 10ml Udc) 10 ml PO Q6H PRN PRN Reason: Cough Stop: 06/14/23 06:53 Last Admin: 05/15/23 10:00 Dose: 10 ml Documented By: LISA Hydroxyzine HCl (Hydroxyzine Hcl 25 Mg Tab) 25 mg PO HS PRN PRN Reason: Sleep Stop: 06/13/23 22:00 Last Admin: 05/14/23 23:40 Dose: 25 mg Documented By: DANGELO Lactated Ringer's (Lr) 1,000 mls @ 125 mls/hr IV .Q8H SHANE Stop: 06/12/23 23:44 Last Admin: 05/13/23 23:45 Dose: 999 mls/hr Documented By: SHAISTA Ibuprofen (Ibuprofen 600 Mg Tab) 600 mg PO Q4H PRN PRN Reason: Pain Stop: 06/13/23 01:48 Last Admin: 05/17/23 08:20 Dose: 600 mg Documented By: Admin: 05/17/23 01:59 Dose: 600 mg Documented By: Admin: 05/16/23 21:08 Dose: 600 mg Documented By: Admin: 05/16/23 16:35 Dose: 600 mg Documented By: Admin: 05/16/23 10:19 Dose: 600 mg Documented By: Admin: 05/16/23 05:55 Dose: 600 mg Documented By: Admin: 05/16/23 01:53 Dose: 600 mg Documented By: Admin: 05/15/23 20:06 Dose: 600 mg Documented By: Admin: 05/15/23 15:19 Dose: 600 mg Documented By: Admin: 05/15/23 10:43 Dose: 600 mg Documented By: Admin: 05/15/23 06:27 Dose: 600 mg Documented By: Admin: 05/14/23 23:40 Dose: 600 mg Documented By: Admin: 05/14/23 19:12 Dose: 600 mg Documented By: KOMAL Nicotine (Nicotine 14 Mg/24 Hr Patch) 14 mg TD QAM [facility] Stop: 06/15/23 14:44 Last Admin: 05/16/23 17:58 Dose: Not Given Documented By: TOMY Oxycodone/Acetaminophen (Oxycodone/Acetaminophen 5mg/325mg Tab) 1 - 2 tab PO Q4H PRN PRN Reason: Pain Stop: 05/28/23 18:53 Last Admin: 05/17/23 08:19 Dose: 1 tab Documented By: Admin: 05/17/23 02:00 Dose: 1 tab Documented By: Admin: 05/16/23 21:08 Dose: 1 tab Documented By: Admin: 05/16/23 16:35 Dose: 1 tab Documented By: Admin: 05/16/23 10:19 Dose: 1 tab Documented By: Admin: 05/16/23 05:55 Dose: 1 tab Documented By: Admin: 05/16/23 01:53 Dose: 1 tab Documented By: Admin: 05/15/23 20:06 Dose: 1 tab Documented By: Admin: 05/15/23 15:19 Dose: 1 tab Documented By: Admin: 05/15/23 10:42 Dose: 1 tab Documented By: Admin: 05/15/23 06:27 Dose: 1 tab Documented By: Admin: 05/14/23 23:39 Dose: 1 tab Documented By: Admin: 05/14/23 19:13 Dose: 1 tab Documented By: KOMAL Prenat Multivit/Collar Fuser/Iron/Folic Ac ( Vitamin 1 Tab) 1 tab PO DAILY@08 [facility] Stop: 06/13/23 07:59 Last Admin: 05/17/23 08:19 Dose: 1 tab Documented By: Admin: 05/16/23 08:22 Dose: 1 tab Documented By: Admin: 05/15/23 09:03 Dose: 1 tab Documented By: [facility] Admin: 05/14/23 09:21 Dose: Not Given Documented By: SABINO Sertraline HCl (Sertraline Hcl 50 Mg Tablet) 50 mg PO QAM [facility] Stop: 06/14/23 08:59 Last Admin: 05/17/23 08:19 Dose: 50 mg Documented By: Admin: 05/16/23 08:22 Dose: 50 mg Documented By: Admin: 05/15/23 09:04 Dose: 50 mg Documented By: [facility] Simethicone (Simethicone 80 Mg Chew) 80 mg PO DAILY@08,13,17,21 [facility] Stop: 06/13/23 07:59 Last Admin: 05/17/23 08:19 Dose: 80 mg Documented By: Admin: 05/16/23 21:08 Dose: 80 mg Documented By: Admin: 05/16/23 16:36 Dose: Not Given Documented By: Admin: 05/16/23 16:35 Dose: 80 mg Documented By: Admin: 05/16/23 08:22 Dose: 80 mg Documented By: Admin: 05/15/23 20:06 Dose: 80 mg Documented By: Admin: 05/15/23 17:22 Dose: 80 mg Documented By: [facility] Admin: 05/15/23 12:53 Dose: 80 mg Documented By: [facility] Admin: 05/15/23 09:02 Dose: 80 mg Documented By: [facility] Admin: 05/14/23 20:57 Dose: 80 mg Documented By: Admin: 05/14/23 17:32 Dose: 80 mg Documented By: Admin: 05/14/23 14:44 Dose: Not Given Documented By: Admin: 05/14/23 08:13 Dose: 80 mg Documented By: ASBINO Coding Level of Care Code 35879 IN/OBS CONSULT LVL 5,80M Diagnoses Adjustment disorder with mixed anxiety and depressed mood F43.23 At risk for depressed mood during period Z91.89 Time Spent (min) 85
[2023-05-18] MEDS ORDERED: NIFEdipine EXTENDED REL 30 MG TABCR PO SCH (09:00)
--- NOTE | 2023-05-20 21:06 | Discharge Summary ---
Date of Service May 20, 2023 Admission HPI Per Admitting Provider Radha osmar 23-year-old G3, P1 currently at 36 weeks 3-day gestational age presents with spontaneous rupture of membranes. Current pressure is a di/di twin intrauterine with fetus is in cephalic cephalic presentation. also complicated by prior section, gestational diabetes and thrombocytopenia. Last platelet count was 95. Patient was considering a trial of labor after section. We discussed risks of trial of labor versus repeat section. We discussed uterine rupture and resulting maternal and harm and . After review of options and risks/benefits patient would like to proceed with a repeat section. She had previously discussed a tubal ligation which we reviewed again today. We discussed additional options for control as an alternative to a tubal ligation. After extensive discussion of options patient would like to proceed with placement of a Nexplanon postdelivery. DI/DI Twin *Baby ASA daily start 12-28wks until delivery *Anatomy scan @20wks *Serial growth US/S starting @24wks *Wkly NST's @32wks, twice wkly @36wks(nml growth) *Twice wkly NST's @32wks, ICSI or abnml growth *MD visits Q2wks @24wks & Qwk @32wks *DI/DI Deliver @38wks LGA twins normal range EFWs at 32wk Prior Section affecting would desire a if can and doctor thinks appropriate firs c/s for nrfht C/S WITH TUBAL ON 05/24/23 WITH HARDYK GDM in prior *Begin monthly Growth US's @24wks Need for Rhogam due to RH Negative Mother *Rhogam given 10/11/22 in ED- [facility] *Rhogam given 03/21/23- PW Hx Hepatitis C Antibody -neg antibody w/ nob labs Thrombocytopenia -CBC at 28 wks *platelets 104 repeat in 4 wks. +FFN 03/27/23 Steroids given at L&D 03/27/23 [address] [facility] [address] [place] [address] Obstetrics Visit Signed Patient:RADHA NOEL Service Date:05/13/23 MR#:[id number] Ref Phy:Kim Brewer DO Acct ID:[id number] Ca Phy:Estephania Plasencia CRNP Date:2000 Location:[facility] cc: Kim Brweer, DO~ *NOTICE TO RECEIVING GREEN PARTY/AGENCY This information is strictly Confidential and protected under [place] law. [place] law prohibits you from making any further disclosure of this information unless further disclosure is expressly permitted by the written consent of the person to whom it pertains or is authorized by law. A general authorization for the release of medical or other information is not sufficient for this purpose. Physician Practice accepts no responsibility if the information is made available to any other person, INCLUDING THE PATIENT. OB Problems & Plan Follow Up Follow Up: 1 Week Medical Agricultural Crop Farm Manager Agricultural Crop Farm Manager Determination Visit Includes a Sensitive Exam of the Pt/Pt Requested: Yes Pt Informed of [facility]'s Recommendation for a Medical Agricultural Crop Farm Manager: Yes Presence of a Medical Agricultural Crop Farm Manager: Accepts Visit CARLA Calculator Estimated Delivery Date Method Current WG Current Estimate 06/07/23 Ultrasound #1 36w 3d # 2 LMP: 06/12/22 : 3 Full term: 1 Premature: 0 Total Number of Induced Abortions: 1 Total Number of Spontaneous Abortions: 0 Ectopics: 0 Multiple births: 0 Number of Living Children: 1 and Delivery Plans DI/DI Twin *Baby ASA daily start 12-28wks until delivery *Anatomy scan @20wks *Serial growth US/S starting @24wks *Wkly NST's @32wks, twice wkly @36wks(nml growth) *Twice wkly NST's @32wks, ICSI or abnml growth *MD visits Q2wks @24wks & Qwk @32wks *DI/DI Deliver @38wks LGA twins normal range EFWs at 32wk Prior Section affecting would desire a if can and doctor thinks appropriate firs c/s for nrfht C/S WITH TUBAL ON 05/24/23 WITH HARDYK GDM in prior *Begin monthly Growth US's @24wks Need for Rhogam due to RH Negative Mother *Rhogam given 10/11/22 in ED- [facility] *Rhogam given 03/21/23- PW Hx Hepatitis C Antibody -neg antibody w/ nob labs Thrombocytopenia -CBC at 28 wks *platelets 104 repeat in 4 wks. +FFN 03/27/23 Steroids given at L&D 03/27/23 OB Labs: Blood Type O Negative 10/22/22 Antibody Screen NEGATIVE 03/21/23 Hemoglobin 11.5 g/dl (12.0-16.0) L 04/25/23 Hematocrit 34.2 % (37.0-47.0) L 04/25/23 Mean Corpuscular Volume 90.7 fL (80.0-100.0) 04/25/23 Platelet Count 88 K/uL (130-400) L 04/25/23 Rubella IgG Antibody Immune (Immune) 10/22/22 Rapid Plasma Reagin Nonreactive (Nonreactive) 10/22/22 Hepatitis B Surface Antigen NEG (NEG) 07/23/17 Hepatitis B Surface Antigen. NON-REACTIVE (NON-REACTIVE) 10/22/22 Hepatitis C Antibody (EIA) NON-REACTIVE (NON-REACTIVE) 10/22/22 HIV (1&2) Ab and P24 Ag, 4th Gener NEG (NEG) 07/23/17 HIV (1&2) Ag and Ab Confirmation NON-REACTIVE (NON-REACTIVE) 10/22/22 OB Optional Labs: Chlamydia trachomatis RNA Not Detected (NotDetected) 10/22/22 Neisseria gonorrhoeae RNA Not Detected (NotDetected) 10/22/22 Alpha Fetoprotein Triple Screen SEE NOTE 09/09/17 Alpha Fetoprotein 26.4 NG/ML 09/09/17 Discharge Data Consultations 05/13/23 23:41 Consult Anesthesiology Stat 05/17/23 09:42 Consult Psychiatry Routine Procedures Performed Operation Date: 05/13/23 23:50 Actual Procedures p Section in - Ramon Llamas MD Hospital Course (1) Previous delivery affecting , antepartum: Patient was admitted for spontaneous rupture of membranes at 36 weeks gestational age. Patient had history of prior and opted for repeat C- section. Procedure was performed without complication. Patient remained in house until day 3 and was discharged home in stable condition. Patient was noted to have elevated blood pressures and was started on Procardia XL 30 mg daily. Patient provided both written and verbal discharge instructions. (2) Dichorionic diamniotic twin : Coding Level of Care Code None Diagnoses Previous delivery affecting , antepartum O34.219 Dichorionic diamniotic twin O30.049
== END 2023-05-17 15:00 | disposition home or self-care (01) | DRG 786 ==
LOC: OPB 23:17 → 4S1 23:18 → 4E2 05-14 06:19